=== PATIENT | male | born 1985 | race African-American/Black ===

== ENCOUNTER → 2018-04-14 | Outpatient (CLI) | payer MEDICARE, MEDICAID ==
[2018-04-14 16:12] LABS: ALBUMIN/GLOBULIN RATIO 1.2 (1.0-1.7); ALK PHOS 68 U/L (46-116); ALT (SGPT) 37 U/L (16-63); ANION GAP 5 (6-14); AST (SGOT) 19 U/L (15-37); BLOOD UREA NITROGEN 15 mg/dL (8-26); BUN/CREATININE RATIO 14 (6-20); CALCIUM 8.7 mg/dL (8.5-10.1); CARBON DIOXIDE 31 mmol/L (21-32); CHLORIDE 105 mmol/L (98-107); CREATININE 1.1 mg/dL (0.7-1.3); GFR 92.7; GLUCOSE 92 mg/dL (70-99); POTASSIUM 4.1 mmol/L (3.5-5.1); SODIUM 141 mmol/L (136-145); TOTAL BILIRUBIN 0.4 mg/dL (0.2-1.0); TOTAL PROTEIN 7.4 g/dL (6.4-8.2)
[2018-04-14 16:20] LABS: THYROID STIM HORMONE (TSH) 0.655 uIU/mL (0.358-3.74)
== END | disposition home or self-care (01) ==
LOC: LAB 15:21
DX: R53.83 Other fatigue (principal); Z79.899 Other long term (current) drug therapy
CPT/HCPCS: 36415; 80053; 83036; 84443